=== PATIENT | male | born 1975 | race African-American/Black ===

== ENCOUNTER 2020-10-09 16:43 | Emergency (ER) | payer BC, OTHER ==
[~2020-10-09] VITALS: Ht 172.7 cm; Wt 92.0 kg
[~2020-10-09 16:43] MED LIST: CYCL10TA2 PO; HYDR1TAB10 PO; LOSA100T14 PO
[2020-10-09 16:52] VITALS: BP 128/92
[2020-10-09] MEDS ORDERED: HYDROcodone/APAP 5/325MG 1 TAB TABLET PO ONE (17:15)
[2020-10-09] MEDS ORDERED: HYDR-2761 PO (17:34)
--- NOTE | 2020-10-09 17:35 | ED.ADGEN ---
Past Medical History Past Surgical History: Other Additional Past Surgical Histo: RECTAL WART REMOVAL Smoking Status: Never Smoker Alcohol Use: None General Adult EDM: Chief Complaint: LOWEREXTREMITY INJURY HPI: HPI: Patient is a 45 year old AA male who presents to the emergency department with complaints of pain in his left calf. Patient states he was playing basketball with his son when he went up for a layup and at the same time his son collided with the back of his left leg and he immediately felt pain in his mid posterior calf. Patient states that his lower left extremity is swollen and painful. He reports weakness with plantar flexion. He currently rates the pain a 10 out of 10 on the pain scale, he denies any alleviating factors, pain is worse with palpation and movement. Review of Systems: Review of Systems: Complete ROS is negative unless otherwise noted in HPI. Allergies: Allergies: Allergies Coded Allergies Type Severity Reaction Last Updated Verified No Known Drug Allergies 02/01/14 No See Above Physical Exam: PE: See Above Constitutional: Well developed, well nourished, no acute distress, non-toxic appearance. [] HENT: Normocephalic, atraumatic, bilateral external ears normal, nose normal. [] Eyes: PERRLA, EOMI, conjunctiva normal, no discharge. [] Neck: Normal range of motion, no stridor. [] Cardiovascular:Heart rate regular rhythm Lungs & Thorax: Respirations even and unlabored, no retractions, no respiratory distress Skin: Warm, dry, no erythema, no rash. [] Extremities: LLE: No bony tenderness or obvious deformity, 1+ edema, 2+ pedal pulse, TTP of the mid calf without palpable mass or hematoma noted, ROM intact, 2+ pedal pulse, strength 5/5 with dorsi extension, weakness present with plantar extension, sensation intact Neurologic: Alert and oriented X 3, no focal deficits noted. [] Psychologic: Affect normal, judgement normal, mood normal. [] Current Patient Data: Vital Signs: Vital Signs Date Time Temp Pulse Resp B/P (MAP) Pulse Ox O2 Delivery O2 Flow Rate FiO2 10/09/20 16:52 120 16 128/92 96 Room Air EKG: EKG: [] Heart Score: C/O Chest Pain: No Radiology/Procedures: Radiology/Procedures: [] Course & Med Decision Making: Course & Med Decision Making Pertinent Labs and Imaging studies reviewed. (See chart for details) 1700-I spoke with Dr. Brooks about the patient and physical exam findings. I suspect that the patient has a gastrocnemius or Achilles tendon injury. Will place patient in a cam walker as instructed and have patient follow-up with Dr. Brooks in office. [] Jag Disclaimer: Dragofelia Disclaimer: This electronic medical record was generated, in whole or in part, using a voice recognition dictation system. Departure Departure Impression: Primary Impression: Pain of left calf Disposition: HOME / SELF CARE / HOMELESS Condition: STABLE Referrals: Berenice GRISSOM MD (PCP) Patient Instructions: Medial Head Gastrocnemius Tear (Tennis Leg) with [facility] Additional Instructions: Fill the prescription and use as directed. Wear the CAM walker and use the crutches provided until follow up appointment with Dr. Brooks, recommend application of ice, elevation, and rest of the affected extremity. Return to the ER if symptoms worsen or fever develops. Scripts Hydrocodone Bit/Acetaminophen (HYDROCODONE-APAP 5-325 ) 1 Tab Tablet 1 TAB PO PRN Q6HRS PRN for PAIN for 5 Days, #20 TAB 0 Refills Prov: NORA KAUFFMAN LEVELER HELPER 10/09/20 NORA KAUFFMAN LEVELER HELPER Oct 09, 2020 17:35
== END 2020-10-09 19:13 | disposition home or self-care (01) ==
LOC: ER 16:43
DX: M79.662 Pain in left lower leg (principal)
CPT/HCPCS: 99283